=== PATIENT | female | born 1955 | race Caucasian/White ===

== ENCOUNTER 2016-11-23 09:59 | Day surgery (SDC) | payer BC ==
--- NOTE | ~2016-11-23 | EGD ---
EGD REPORT [facility] [address] [address] NAME: DALILA BARNES : [birth year] STATUS : REG [facility] [place] PAT#: [id number] AGE: 60 ADM/REG DATE : 11/23/16 MR#: [id number] REPORT SERV DATE: 11/23/16 DICTATED BY: SHYANNE HERNANDEZ DATE: 11/23/16 REPORT STATUS : Draft TRANSCRIBED BY: [employer] DATE: 11/23/16 [facility] Patient Name: Dalila Barnes Date of : 1955 Attending MD: SHYANNE HERNANDEZ MD Procedure Date No Time: 11/23/2016 Procedure: Colonoscopy Indications: High risk colon cancer surveillance: Personal history of colonic polyps Referring MD: SOPHIA HAQ MD Medicines: as per anesthesia Complications: No immediate complications. Procedure: Pre-Anesthesia Assessment: - ASA Grade Assessment: II - A patient with mild systemic disease. After I obtained informed consent, the scope was passed under direct vision. Throughout the procedure, the patient's blood pressure, pulse, and oxygen saturations were monitored continuously. The [facility] [id number] was introduced through the anus and advanced to the cecum, identified by appendiceal orifice and ileocecal valve. The colonoscopy was somewhat difficult due to restricted mobility of the colon, significant looping and a tortuous colon. The patient tolerated the procedure. The quality of the bowel preparation was fair. Findings: The perianal and digital rectal examinations were normal. The colon (entire examined portion) appeared normal. Impression: - The entire examined colon is normal. Recommendation: - Repeat colonoscopy in 5 years for surveillance. Procedure Code(s): --- Professional --- 79989, Colonoscopy, flexible, proximal to splenic flexure; diagnostic, with or without collection of specimen(s) by brushing or washing, with or without colon decompression (separate procedure) Diagnosis Code(s): --- Professional --- Z86.010, Personal history of colonic polyps CPT copyright 2013 [employer]. All rights reserved. EGD REPORT [facility] [address] [place] [address] NAME: DALILA BARNES : [birth year] STATUS : REG [facility]#: [id number] AGE: 60 ADM/REG DATE : 11/23/16 MR#: [id number] REPORT SERV DATE: 11/23/16 DICTATED BY: SHYANNE HERNANDEZ DATE: 11/23/16 REPORT STATUS : Draft TRANSCRIBED BY: [employer] DATE: 11/23/16 The codes documented in this report are preliminary and upon bonderizer operator review may be revised to meet current compliance requirements. SHYANNE HERNANDEZ MD 11/23/2016 12:58 PM This report has been signed electronically. Number of Addenda: 0 Note Initiated On: 11/23/2016 12:04 PM Scope Withdrawal Time 0 hours 7 minutes 50 seconds [address] [place] [address]
[~2016-11-23 09:59] MED LIST: MINIVELLE1 EAC3 TOP
== END 2016-11-23 23:59 | disposition home or self-care (01) ==
LOC: DMU 09:59
PROVIDERS: Internal Medicine Gastroenterology
PROC: 0DJD8ZZ Inspection of Lower Intestinal Tract, Via Natural or Artificial Opening Endoscopic (ICD-10-PCS; principal; 2016-11-23 12:00)
DX: Z12.11 Encounter for screening for malignant neoplasm of colon (principal); L40.9 Psoriasis, unspecified; D64.9 Anemia, unspecified; Z86.010 Personal history of colon polyps; Z90.5 Acquired absence of kidney; Z87.718 Personal history of other specified (corrected) congenital malformations of genitourinary system; Z90.710 Acquired absence of both cervix and uterus; Z98.41 Cataract extraction status, right eye; Z98.42 Cataract extraction status, left eye; Z96.1 Presence of intraocular lens; Z90.49 Acquired absence of other specified parts of digestive tract; Z88.2 Allergy status to sulfonamides